=== PATIENT | male | born 1950 | race Asian ===

== ENCOUNTER 2019-12-15 09:58 | Day surgery (SDC) | payer OTHER | END 2019-12-15 13:08 | disposition home or self-care (01) | LOC: OR 09:58 | PROC: 3E0R33Z Introduction of Anti-inflammatory into Spinal Canal, Percutaneous Approach (ICD-10-PCS; principal; 2019-12-15) | PROC: B01BYZZ Fluoroscopy of Spinal Cord using Other Contrast (ICD-10-PCS; 2019-12-15) | DX: M51.16 Intervertebral disc disorders with radiculopathy, lumbar region (principal) | CPT/HCPCS: J1020 ==

== ENCOUNTER 2020-04-19 07:49 | Day surgery (SDC) | payer OTHER | END 2020-04-19 09:35 | disposition home or self-care (01) | LOC: OR 07:49 | PROC: 3E0R33Z Introduction of Anti-inflammatory into Spinal Canal, Percutaneous Approach (ICD-10-PCS; principal; 2020-04-19) | PROC: B01BYZZ Fluoroscopy of Spinal Cord using Other Contrast (ICD-10-PCS; 2020-04-19) | DX: M51.16 Intervertebral disc disorders with radiculopathy, lumbar region (principal) ==

== ENCOUNTER 2020-12-19 09:05 | Outpatient (CLI) | payer OTHER | END 2020-12-19 19:20 | disposition home or self-care (01) | LOC: EMG 09:05 | PROVIDERS: ATTEND Nurse Practitioner | DX: G56.00 Carpal tunnel syndrome, unspecified upper limb (principal); M51.16 Intervertebral disc disorders with radiculopathy, lumbar region | CPT/HCPCS: 95860; 95910 ==